=== PATIENT | female | born 1985 | race Caucasian/White ===

== ENCOUNTER 2017-08-26 08:03 | Emergency (ER) | payer OTHER, MEDICAID ==
[2017-08-26 08:38] LABS: URINE BLOOD (Dip) POC Negative (NEGATIVE); URINE GLUCOSE (Dip) POC Negative (NEGATIVE); URINE KETONES (Dip) POC Negative (NEGATIVE); URINE LEUKOCYTE EST (Dip) POC 2+ (NEGATIVE); URINE NITRITE (Dip) POC Negative (NEGATIVE); URINE TOTAL PROTEIN POC Negative (NEGATIVE)
[2017-08-26 08:38] LABS: URINE PH (Dip) POC 6.5 (5.0-8.5)
== END 2017-08-26 09:08 | disposition home or self-care (01) ==
LOC: FTE 08:03
DX: O23.41 Unspecified infection of urinary tract in pregnancy, first trimester (principal); R33.9 Retention of urine, unspecified; Z3A.10 10 weeks gestation of pregnancy
CPT/HCPCS: 81003; 87086; 99283

== ENCOUNTER 2017-08-28 08:46 | Emergency (ER) | payer MEDICAID, OTHER ==
[2017-08-28 09:32] LABS: URINE BLOOD (Dip) POC Negative (NEGATIVE); URINE GLUCOSE (Dip) POC Negative (NEGATIVE); URINE KETONES (Dip) POC Trace (NEGATIVE); URINE LEUKOCYTE EST (Dip) POC Negative (NEGATIVE); URINE NITRITE (Dip) POC Negative (NEGATIVE); URINE TOTAL PROTEIN POC 1+ (NEGATIVE)
[2017-08-28] MEDS: CEPHALEXIN 500 MG CAP PO (09:32)
[2017-08-28] MEDS: LIDOCAINE 1% (MDV) 10 ML INJ INJ (09:33)
[2017-08-28] MEDS: CEFTRIAXONE 1 GM INJ IM (09:33)
== END 2017-08-28 09:46 | disposition home or self-care (01) ==
LOC: FTE 08:46
DX: O23.41 Unspecified infection of urinary tract in pregnancy, first trimester (principal); Z3A.09 9 weeks gestation of pregnancy; Z91.040 Latex allergy status
CPT/HCPCS: 81003; 87086; 96372; 99284-25